=== PATIENT | male | born 1985 ===

== ENCOUNTER → 2017-03-11 | Outpatient (CLI) | payer BC ==
--- NOTE | 2017-03-11 11:18 | DIAGNOSTIC IMAGING REPORT ---
RIGHT KNEE 4 OR MORE VIEWS HISTORY:31 yearsMaleMENSICAL TEAR Right COMPARISON: None available TECHNIQUE: 4 views of the right knee FINDINGS: There is a moderate-sized joint effusion. No acute fracture, dislocation, significant degenerative changes or osteochondral defect identified. There is mild medial soft tissue swelling. Negative for opaque foreign body. IMPRESSION: 1. Mild medial soft tissue swelling with moderate sized joint effusion. 2. No acute fracture, dislocation or significant degenerative changes. The above report was generated using voice recognition software. It may contain grammatical, syntax or spelling errors. Electronically signed by: Shant Lal M.D. 03/11/2017 11:16 AM Dictated Date/Time: 03/11/2017 11:15 AM
== END | disposition home or self-care (01) ==
LOC: C.RAD1850 10:51
PROVIDERS: ATTEND Student in an Organized Health Care Education/Training Program
DX: M25.569 Pain in unspecified knee (principal)